=== PATIENT | female | born 1990 | race Two or more races ===

== ENCOUNTER 2018-04-09 22:29 | Inpatient (IN) | payer MEDICAID ==
[2018-04-09 23:01] LABS: PLATELET COUNT 242 10^3/uL (150-400)
[2018-04-09] MEDS ORDERED: EPSOM SALT 454 GM TP PRN (23:14)
[2018-04-09] MEDS ORDERED: OLIVE OIL 118 ML BTL MISC PRN (23:14)
[2018-04-09] MEDS ORDERED: TERBUTALINE SULFATE 1 MG/ML VIAL IV PRN (23:14)
[2018-04-09] MEDS ORDERED: LR 1,000 ML IV PRN (23:14)
[2018-04-09] MEDS ORDERED: IBUPROFEN 600 MG TAB PO PRN (23:14)
[2018-04-09] MEDS ORDERED: LIDOCAINE 1% 300 MG/30 ML SDV SC PRN (23:14)
[2018-04-09] MEDS ORDERED: OXYTOCIN/RINGERS LACTATE 1,000 ML IV PRN (23:14)
[2018-04-09] MEDS ORDERED: MISOPROSTOL 50 MCG CAP ONE (23:50)
[2018-04-09] MEDS ORDERED: MISOPROSTOL 50 MCG CAP PO SCH (23:53)
--- NOTE | 2018-04-10 01:50 | PDGENHP ---
History and Physical History and Physical: HOSPITALIST CONSULT NOTE: I am asked by Dr. Martines to assist in the care of this patient who is admitted at 18 weeks with uncontrolled diabetes HISTORY: This patient has a known history of type 1 diabetes mellitus and has been noted in outpatient clinic records to have poor control of her diabetes. She is admitted at this time on the obstetric service at 18 weeks for acute bleeding, ongoing miscarriage. She is recieving misoprostol to facilitate the miscarriage. She is starting to notice some cramps from the medicine, but otherwise feels and has recently felt well. In terms of DM1, she thinks she was diagnosed at age 3. She is poorly compliant with monitoring, diet, and dosing of insulin at home. A review of her sugars in recent clinic lab tests shows numbers in the 250-300+ range. She is at 510 on arrival here [facility]. States she increased her dose of levemir 2 mos ago from 30 bid to 40 bid, but this was based on "feeling like my sugars were high", she had not checked fasting sugars before or after changing the dose. She says she uses "a sort of sliding scale" based on food intake for novolog, and thinks she uses average 40 units of novolog per day. Her last dose of levemir was AM 12/13. ROS: A comprehensive 10 system review revealed no other significant findings PAST MEDICAL HISTORY: Type 1 diabetes mellitus, poorly controlled No occular, cardiac, or renal complications of DM Hypothyroidism FAMILY MEDICAL HISTORY: No reported family medical issues SOCIAL HISTORY: some marijuana no street drugs employed MEDICATIONS: levemir 40 bid novolog doses based on meals PHYSICAL EXAMINATION: Vital Signs: all stable no fever Examination: General: alert, oriented, good mentation, relaxed Skin: warm, dry, good color, some mild scaling of skin on lower legs but no diabetic foot complications of skin or nails or otherwise HEENT: normal Neck: no mass or jvd Resps: relaxed Lungs: clear breath sounds Heart: regular, no murmur Abdomen: soft, nondistended, nontender, +BS, no mass Upper Extremities: normal Lower Extremities: no edema, warm No Bleeding or bruising Neurologic: normal speech/language, normal powder monkey, no focal weakness IV site: looks normal LABORATORY DATA: Initial glucose 510 on serum chemistry, with a CO2 of 16 but anion gap at 14 Sodium initially 131 ASSESSMENT: * Acutely uncontrolled diabetes mellitus type 1 * Metabolic acidosis with initial normal anion gap * dehydration due to hyperglycemia is suspected * acute miscarriage at 18 weeks * hx of hypothryoidism The normal anion gap would argue against ketoacidosis. However, her CO2 of 16 is below the typically expected range for , and I have seen marked ketoacidosis in with a normal anion gap in other patients. PLANS: * Reassess metabolic acidosis with CO2, anion gap and beta hydroxybutyrate levels at this time * IV hydration - have ordered 1 L if LR iv bolus now, * Insulin - will give a dose of sub q humalog now * will reassess when lab results available and make plans for ongoing insulin dosing, lab monitoring, and IV hydration I have reviewed the patient's case in detail with Dr. Martines I have reviewed the patient's past medical records as part of this assessment, including outpatient clinic records
[2018-04-10] MEDS ORDERED: INSULIN LISPRO 100 UNIT/ML SC ONE (02:05)
[2018-04-10] MEDS: LR 1,000 ML IV SCH ×2 (02:58→07:43)
[2018-04-10] MEDS ORDERED: LR 1,000 ML IV SCH (03:30)
[2018-04-10] MEDS ORDERED: LR 500 ML IV SCH (03:30)
[2018-04-10] MEDS ORDERED: MISOPROSTOL 50 MCG CAP PO SCH (04:00)
[2018-04-10] MEDS: fentaNYL 100 MCG/2 ML INJ IVP PRN ×4 (04:14→08:16)
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
[2018-04-10] MEDS: INSULIN LISPRO 100 UNIT/ML SC SCH ×3 (06:10→13:49)
[2018-04-10] MEDS ORDERED: LEVOTHYROXINE 100 MCG TAB PO SCH (06:15)
--- NOTE | 2018-04-10 06:26 | OBPROG ---
Labor Progress Note Assessment/Plan: Assessment: IUP at 18 wks PROM, bleeding - induction with cytotec PCS x2 Type I DM - poorly controlled on sliding scale insulin per Dr Starr Hypothyroidism, non-compliant with meds Plan: BMP and TSH being drawn, will cont cytotec q 4 hrs 04/10/18 06:22 Subjective/Intrapartum Course: 04/10/18 06:25 Pt has been resting after Fentanyl for increased cramping. Requesting now another dose for more cramping. Bleeding has been little when up to bathroom Objective: 04/09/18 22:45 04/10/18 02:20 Patient ABO/Rh A POSITIVE 04/09/18 22:45 - SVE Dilation (cm): 1 Effacement (%): 50 Station: -2 Membranes: SROM Amniotic Fluid Color: Bloody - Contraction Pattern Assessment Current Contraction Pattern: Other (Specify) (irreq cramping) Oxytocin Orders Assessment - Pre-Induction/Augmentation Assessment Gestational Age: 18 week(s) and 1 day(s) ICD10 Worksheet Patient Problems: Problems Problem Status Onset PROM (premature rupture of membranes) Acute Second trimester Acute
--- NOTE | 2018-04-10 07:56 | PREANESOB ---
Obstetric Pre-Anesthesia Info - General Info Proposed Procedure: epidural for demise NPO Start Time: 07:53 : 3 Para: 2 LILY: 09/10/18 Gestational Age: 18 week(s) and 1 day(s) - Info Status: IUGR ( demise at 18/) FHR Pattern: Non-reassuring ( demise) - Labor Status Cervical Dilation per last OB SVE: 1 Station per last OB SVE: -2 Time of last SVE per OB: 07:55 Rupture of Membranes Date: 04/10/18 (N/A) Rupture of Membranes Time: 07:55 (N/A) Amniotic Fluid Color: Bloody PIH: No Magnesium Sulfate in Use: No Indications for Labor Analgesia: Pain Control Labor Epidural: Yes Anesthesia Allergies/Adverse Reactions: Allergy/AdvReac Type Severity Reaction Status Date / Time No Known Allergies Allergy Unverified 04/09/18 22:43 Home Medications: Medication Instructions Recorded Levothyroxine [Synthroid 100 mcg 100 mcg PO DAILY06 04/10/18 (*)] Visit Medications: Generic Name Dose Route Start Last Admin Trade Name Freq PRN Reason Stop Dose Admin Fentanyl 50 mcg 04/10/18 03:56 04/10/18 07:31 Sublimaze IVP 04/20/18 03:55 50 mcg Q2HRS PRN Administration Pain, Severe Unable to Take PO Lactated Ringer's 1,000 mls @ 0 mls/hr 04/09/18 23:14 04/10/18 02:58 Lr IV 04/10/18 23:13 1,000 mls PRN PRN Administration SEE PROTOCOL CONDITIONS Protocol Per Protocol Oxytocin/Lactated Ringer's 1,000 mls @ 125 mls/hr 04/09/18 23:14 Pitocin 20 Units/Lr (Premix) IV PRN PRN Post bleeding Lactated Ringer's 1,000 mls @ 0 mls/hr 04/10/18 02:30 04/10/18 07:43 Lr IV 10/07/18 02:29 1,000 mls CONT ROWENA Administration As Directed Lactated Ringer's 500 mls @ 0 mls/hr 04/10/18 03:30 04/10/18 03:57 Lr IV 10/07/18 03:29 500 mls CONT ROWENA Administration Wide Open Lactated Ringer's 1,000 mls @ 200 mls/hr 04/10/18 03:30 04/10/18 04:15 Lr IV 10/07/18 03:29 1,000 mls CONT ROWENA Administration Insulin Glargine 35 units 04/10/18 09:00 Lantus Syringe SC 10/07/18 08:59 DAILY ROWENA Insulin Glargine 35 units 04/10/18 21:00 Lantus Syringe SC 10/07/18 20:59 HS ROWENA Insulin Human Lispro 0 unit 04/10/18 06:00 04/10/18 06:10 Humalog Lispro SC 10/07/18 05:59 Not Given Q4HRS [facility] Protocol Levothyroxine Sodium 100 mcg 04/10/18 06:15 04/10/18 06:30 Synthroid PO 10/07/18 06:14 100 mcg DAILY06 ROWENA Administration Lidocaine HCl 300 mg 04/09/18 23:14 Lidocaine Hcl 1% SC 10/06/18 23:13 ONCE PRN episiotomy Magnesium Sulfate 454 gm 04/09/18 23:14 Epsom Salt TP 10/06/18 23:13 Q1H PRN perineal discomfort Misoprostol 100 mcg 04/10/18 04:00 04/10/18 05:26 Cytotec PO 10/07/18 03:59 100 mcg Q4H ROWENA Administration [place] Oil 118 ml 04/09/18 23:14 Sweet Oil MISC 10/06/18 23:13 ONCE PRN perineal massage Terbutaline Sulfate 0.25 mg 04/09/18 23:14 Brethine IV 10/06/18 23:13 ONCE PRN Tachysystole Discontinued Medications Generic Name Dose Route Start Last Admin Trade Name Freq PRN Reason Stop Dose Admin Ibuprofen 600 mg 04/09/18 23:14 04/10/18 02:57 Motrin PO 600 mg ONCE PRN Administration post , pain Insulin Human Lispro 15 unit 04/10/18 02:05 04/10/18 02:47 Humalog Lispro SC 04/10/18 02:06 15 units ONCE ONE Administration Misoprostol 100 mcg 04/09/18 23:53 04/09/18 23:58 Cytotec PO 10/06/18 23:52 100 mcg QID ROWENA Administration Misoprostol Confirm 04/09/18 23:50 Cytotec Administered 04/09/18 23:51 Dose 100 mcg .ROUTE .STK-MED ONE - Vital Signs Height/Weight (Nursing): Height 175.26 cm Weight 72.575 kg Labs: 04/09/18 22:45 04/10/18 05:30 Patient ABO/Rh A POSITIVE 04/09/18 22:45
[2018-04-10] MEDS ORDERED: fentaNYL 2MCG/ML/BUP 0.1% RTU 100 ML BAG EP ONE (08:03)
[2018-04-10] MEDS ORDERED: PHENYLEPHRINE HCL 100 MCG/ML SYR ONE ×2 (08:04→18:28)
--- NOTE | 2018-04-10 08:31 | OBPROG ---
Labor Progress Note Assessment/Plan: Assessment: Plan: Subjective/Intrapartum Course: 04/10/18 06:25 Pt has been resting after Fentanyl for increased cramping. Requesting now another dose for more cramping. Bleeding has been little when up to bathroom 04/10/18 08:27 patient was feeling intense pain and having increased bleeding. sve - cervix appears to be dilated with part but difficult exam. discussed options. patient would like epidural. anesthesia notified. Objective: 04/09/18 22:45 04/10/18 05:30 Patient ABO/Rh A POSITIVE 04/09/18 22:45 - SVE Dilation (cm): 3 Membranes: SROM Amniotic Fluid Color: Bloody - Contraction Pattern Assessment Current Contraction Pattern: Irregular, Other (Specify) (irreq cramping) Oxytocin Orders Assessment - Pre-Induction/Augmentation Assessment Gestational Age: 18 week(s) and 1 day(s) ICD10 Worksheet Patient Problems: Problems Problem Status Onset PROM (premature rupture of membranes) Acute Second trimester Acute
[2018-04-10] MEDS ORDERED: INSULIN GLARGINE 100 UNITS/ML UNIT SC SCH ×2 (09:00→21:00)
[2018-04-10] MEDS ORDERED: LIDOCAINE 1% 300 MG/30 ML SDV ONE (10:54)
[2018-04-10] MEDS ORDERED: MISOPROSTOL 200 MCG TAB ONE (10:55)
[2018-04-10] MEDS ORDERED: TERBUTALINE SULFATE 1 MG/ML VIAL ONE (10:55)
[2018-04-10] MEDS ORDERED: OLIVE OIL 118 ML BTL ONE (10:55)
[2018-04-10] MEDS ORDERED: OXYTOCIN 10 UNIT/ML VIAL ONE (10:55)
[2018-04-10] MEDS ORDERED: AMMONIA AROMATIC 1 EACH AMP IH ONE (10:55)
[2018-04-10] MEDS ORDERED: MISOPROSTOL 25 MCG CAP PO ONE (13:22)
--- NOTE | 2018-04-10 13:22 | OBPROG ---
Labor Progress Note Assessment/Plan: Assessment: Plan: 04/10/18 13:16 Subjective/Intrapartum Course: 04/10/18 06:25 Pt has been resting after Fentanyl for increased cramping. Requesting now another dose for more cramping. Bleeding has been little when up to bathroom 04/10/18 08:27 patient was feeling intense pain and having increased bleeding. sve - cervix appears to be dilated with part but difficult exam. discussed options. patient would like epidural. anesthesia notified. 04/10/18 13:17 patient is still comfortable. placenta has not delivered yet. will give additional dose of cytotec. Objective: 04/09/18 22:45 04/10/18 05:30 Patient ABO/Rh A POSITIVE 04/09/18 22:45 - SVE Membranes: SROM Amniotic Fluid Color: Bloody - Contraction Pattern Assessment Current Contraction Pattern: Irregular, Other (Specify) (irreq cramping) Oxytocin Orders Assessment - Pre-Induction/Augmentation Assessment Gestational Age: 18 week(s) and 1 day(s) ICD10 Worksheet Patient Problems: Problems Problem Status Onset PROM (premature rupture of membranes) Acute Second trimester Acute
[2018-04-10] MEDS ORDERED: MISOPROSTOL 200 MCG TAB PO ONE (14:15)
[2018-04-10] MEDS ORDERED: PHENYLEPHRINE HCL 100 MCG/ML SYR IVP PRN ×2 (14:47→18:56)
[2018-04-10] MEDS ORDERED: ONDANSETRON 4 MG/2 ML VIAL IVP PRN ×2 (14:47→18:56)
[2018-04-10] MEDS ORDERED: NALOXONE HCL 0.4 MG/ML INJ IVP PRN ×2 (14:47→18:56)
[2018-04-10] MEDS ORDERED: fentaNYL 100 MCG/2 ML INJ IVP ONE (14:50)
[2018-04-10] MEDS ORDERED: fentaNYL 2MCG/ML/BUP 0.1% RTU 100 ML EP SCH (15:00)
--- NOTE | 2018-04-10 16:10 | HOSPPROG ---
Hospitalist Progress Note Assessment/Plan: #DM I with hyperglycemia #Metabolic Acidosis, resolved. Normal anion gap #Dehydration, resolving #Acute miscarriage at 18 weeks gestation #Hypothyroidism #Medical noncompliance Plan: cont Lantus, ISS Cont IVF Delivery per Ob cont current meds She reports she will start taking her Levothyroxine thank you for this consult, we will cont to follow along Subjective: no cp or sob. no n/v. Objective: Laboratory Results 04/09/18 22:45 04/10/18 05:30 - Physical Exam Constitutional: no apparent distress Eyes: PERRL Ears, Nose, Mouth, Throat: moist mucous membranes Cardiovascular: regular rate and rhythym, No edema Respiratory: no respiratory distress, no rales or rhonchi, clear to auscultation Gastrointestinal: normoactive bowel sounds Skin: warm Neurologic: AAOx3 Psychiatric: interacting appropriately, not anxious, not encephalopathic Lymph, Heme, Immunologic: No petechiae ICD10 Worksheet Patient Problems: Problems Problem Status Onset PROM (premature rupture of membranes) Acute Second trimester Acute
[2018-04-10] MEDS ORDERED: CITRIC ACID/SODIUM CITRATE 30 ML UDCUP PO ONE (17:15)
[2018-04-10] MEDS ORDERED: DOXYCYCLINE HYCLATE 100 MG CAP/TAB PO ONE (17:15)
[2018-04-10] MEDS ORDERED: SUCCINYLCHOLINE CHLORIDE 200 MG/10 ML SYR IVP ONE (17:30)
[2018-04-10] MEDS ORDERED: fentaNYL 100 MCG/2 ML INJ ONE (17:30)
[2018-04-10] MEDS ORDERED: LIDOCAINE 2% 2 ML INJ ONE (17:30)
[2018-04-10] MEDS ORDERED: PROPOFOL 200 MG/20 ML VIAL ONE (17:30)
--- NOTE | 2018-04-10 17:48 | PDANEPAE ---
ANE Past Medical History - Cardiovascular History Hx Hypertension: No Hx Arrhythmias: No Hx Chest Pain: No - Pulmonary History Hx COPD: No Hx Asthma/Reactive Airway Disease: No Hx Sleep Apnea: No Sleep Apnea Screening Result - Last Documented: Negative - Neurologic History Hx Cerebrovascular Accident: No Hx Seizures: No - Endocrine History Hx Diabetes: Yes Hypothyroid: Yes - Renal History Hx Renal Disorders: No - Liver History Hx Hepatic Disorders: No - Chronic Pain History Chronic Pain: No ANE Review of Systems Review of Systems: ANE Patient History - Allergies Allergies/Adverse Reactions: No Known Allergies Allergy (Unverified 04/09/18 22:43) - Home Medications Home Medications: Levothyroxine [Synthroid 100 mcg (*)] 100 mcg PO DAILY06 04/10/18 [Last Taken Unknown] - NPO status NPO Since - Liquids (Date): 04/10/18 NPO Since - Liquids (Time): 17:19 NPO Since - Solids (Date): 04/09/18 NPO Since - Solids (Time): 19:00 ANE Labs/Vital Signs - Labs Result Diagrams: 04/09/18 22:45 04/10/18 05:30 - Vital Signs Blood Pressure: 94/48 Heart Rate: 88 Respiratory Rate: 16 O2 Sat (%): 94 Height: 175.26 cm Weight: 72.575 kg ANE Physical Exam - Airway Neck exam: FROM Mallampati Score: Class 1 Mouth exam: poor dentition - Pulmonary Pulmonary: no respiratory distress, no rales or rhonchi, clear to auscultation - Cardiovascular Cardiovascular: regular rate and rhythym, no murmur, rub, or gallop - ASA Status ASA Status: III ANE Anesthesia Plan Anesthesia Plan: general endotracheal anesthesia
[2018-04-10] MEDS ORDERED: ePHEDrine SULFATE 25 MG/5 ML SYR ONE (18:22)
[2018-04-10] MEDS ORDERED: LR 500 ML IV PRN (18:56)
[2018-04-10] MEDS ORDERED: DEXAMETHASONE 4 MG/ML VIAL IVP PRN (18:56)
[2018-04-10] MEDS ORDERED: fentaNYL 100 MCG/2 ML INJ IVP PRN (18:56)
[2018-04-10] MEDS ORDERED: PROMETHAZINE HCL 25 MG/ML INJ IVP PRN (18:56)
[2018-04-10] MEDS ORDERED: MEPERIDINE 25 MG/0.5 ML AMP IVP PRN (18:56)
[2018-04-10] MEDS ORDERED: HYDROmorphONE/DILAUDID 2 MG/ML INJ IVP PRN (18:56)
[2018-04-10] MEDS ORDERED: oxyCODONE IR 5 MG TAB PO PRN (18:56)
[2018-04-10] MEDS ORDERED: METOCLOPRAMIDE 10 MG/2 ML VIAL IVP PRN (18:56)
--- NOTE | 2018-04-10 19:00 | POSTANESTH ---
Post Anesthetic Evaluation Cardiovascular Status: Normal, Stable Respiratory Status: Normal, Stable Level of Consciousness/Mental Status: Can Participate in Eval Pain Control: Adequate, Prn Tx Ordered Nausea/Vomiting Control: Adequate, Prn Tx Ordered Complications Possibly Related to Anesthesia: None Noted
[2018-04-10 19:53] VITALS: BP 123/68
--- NOTE | 2018-04-11 08:55 | GOP ---
DATE OF OPERATION: 04/10/2018 SURGEON: Erika Alejandra DO COPYWRITING INTERN: Marge Donovan MD. ANESTHESIA: Epidural with sedation. PREOPERATIVE DIAGNOSIS: Retained placenta. POSTOPERATIVE DIAGNOSIS: Retained placenta. PROCEDURE PERFORMED: Suction dilation and curettage. FINDINGS: 1. Large vaginal septum and possible intrauterine septum. 2. Retained products of conception. SPECIMENS: Products of conception. ESTIMATED BLOOD LOSS: 20 cc. INDICATIONS: Patient is a 28-year-old 3, para 2-0-1-2, who is 18 weeks gestation, who had sp ontaneous rupture of membranes on 04/09/2018. Patient was counseled and decided to proceed with lucian ction of labor after the nonviable fetus. She was given Cytotec and had a spontaneous vaginal delive ry approximately around noon. The placenta did not deliver. She was given several courses of Cytote c and ultimately part of the placenta was able to be delivered. She was found to have a vaginal sept um and a possible intrauterine septum. During this process it was not able to remove all the placent a at bedside and due to the possible vaginal septum and possible uterine septum, decision was made to patient take the patient to the operating room for a suction dilation and curettage under ultrasound guidance. Patient was given doxycycline and signed consent. She was transported to the operating r oom where her epidural was running and she was given sedation. Patient was then prepped and draped i n the normal sterile fashion. DESCRIPTION OF PROCEDURE: After patient was prepped in the normal sterile fashion, a transvaginal ul trasound was performed which showed a thickened endometrial stripe. A speculum was then placed in th e patient's vagina and an Allis clamp was used to grasp the anterior lip of the cervix. A 12 curved suction curette was then used to circumferentially curettage, a large amount of products of conceptio n were noted. A sharp metal curette was then performed, curettage was performed until a gritty textu re was noted. The suction curette was then reintroduced one additional time, no additional products of conception were noted. This was all done under ultrasound guidance by Dr. Donovan. A transvaginal ultrasound was done following completion of the procedure and a thin endometrial stripe was noted. I nstruments were then removed from the patient's vagina. The patient was started on Pitocin and given 600 mcg of Cytotec per rectum. The patient's bleeding was noted to be minimal and she was transferr ed to recovery room in stable condition where she was later discharged to home. /[id number]/MODL
== END 2018-04-10 21:30 | disposition home or self-care (01) | DRG 541 ==
LOC: FLD 22:29 → OBSVTOIN 22:29
PROVIDERS: ADMIT Obstetrics & Gynecology; ATTEND Obstetrics & Gynecology
DX: O03.4 Incomplete spontaneous abortion without complication (principal); O24.012 Pre-existing type 1 diabetes mellitus, in pregnancy, second trimester; E10.65 Type 1 diabetes mellitus with hyperglycemia; Z79.4 Long term (current) use of insulin; O99.282 Endocrine, nutritional and metabolic diseases complicating pregnancy, second trimester; E03.9 Hypothyroidism, unspecified; O99.332 Smoking (tobacco) complicating pregnancy, second trimester; F17.210 Nicotine dependence, cigarettes, uncomplicated; Z87.440 Personal history of urinary (tract) infections; Z91.14 Patient's other noncompliance with medication regimen; Z3A.18 18 weeks gestation of pregnancy
CPT/HCPCS: J0330; J1815; J2370; J2590; J2704; J3010; J3105